=== PATIENT | female | born 1960 | race African-American/Black ===

== ENCOUNTER 2017-07-08 18:22 | Inpatient (IN) | payer OTHER ==
[~2017-07-08] VITALS: Ht 170.2 cm; Wt 128.4 kg
[~2017-07-08 18:22] MED LIST: FERR-63 PO; INS7030 SUBCUT; INSULIN; LOSA25TA3 PO; REGULAR INSULIN SQ
[2017-07-08] MEDS ORDERED: NITROGLYCERIN 50MG PREMIX 250 ML IV ONE (18:33)
[2017-07-08] MEDS ORDERED: NITROGLYCERIN 0.4MG TABLET SL SL PRN (18:45)
[2017-07-08] MEDS ORDERED: ASPIRIN 81MG TABLET PO ONE (18:45)
[2017-07-08 18:55] LABS: BG BASE EXCESS -4.2 mmol/L (-2.0-2.0); BG BILEVEL POS AIRWAY PRESSURE 18/5; BG CARBOXYHEMOGLOBIN 0.8 % (0.5-1.5); BG DEOXYHEMOGLOBIN 6.7 % (0.0-5.0); BG FRACTION INSPIRED OXYGEN 100; BG HCO3 ACT 22.7 mmol/L (22.0-26.0); BG METHEMOGLOBIN 0.3 % (0.0-1.5); BG OXYGEN SATURATION 93.2 % (92.0-98.5); BG OXYHEMOGLOBIN 92.2 % (94.0-97.0); BG PCO2 48.5 mmHg (35.0-45.0); BG PH 7.288 (7.350-7.450); BG PO2 78.9 mmHg (75.0-100.0); BG SAMPLE SITE RIGHT RADIAL; BG TOTAL HEMOGLOBIN 13.7 g/dL (12.0-18.0); BG VENT MODE MASK - BIPAP; BG VENT RATE 20 set
[2017-07-08 19:05] LABS: EOSINOPHILS % 4.4 % (0.0-5.0); HEMATOCRIT. 41.3 % (36.0-48.0); LYMPHOCYTES % 30.6 % (20.0-50.0); MEAN CORPUSCULAR HEMOGLOBIN 25.7 pg (28.0-32.0); MEAN CORPUSCULAR VOLUME 81.7 fL (81.0-99.0); MEAN PLATELET VOLUME 11.2 fl (7.4-10.4); MONOCYTES % 6.1 % (2.0-8.0); NEUTROPHILS % 57.9 % (40.0-76.0); PLATELET 254 x1000/uL (130-400); RED BLOOD CELL COUNT 5.05 mill/uL (4.2-5.4); RED CELL DISTRIBUTION WIDTH 15.1 % (11.6-14.6)
[2017-07-08 19:09] LABS: CHLORIDE 103 mEq/L (98-107)
[2017-07-08 19:10] LABS: PROTHROMBIN TIME 10.8 sec (9.4-11.6)
[2017-07-08] MEDS ORDERED: VANCOMYCIN 1 G PREMIX 200 ML IV ONE (19:30)
[2017-07-08] MEDS ORDERED: PIPERACILLIN/TAZ 3.375G PREMIX 50 ML IV ONE (19:30)
[2017-07-08] MEDS ORDERED: MAGNESIUM/ALUMINUM HYDROXIDE/SIMETHICONE 30ML UDC PO PRN (20:30)
[2017-07-08] MEDS ORDERED: ACETAMINOPHEN 325MG TABLET PO PRN (20:30)
[2017-07-08] MEDS ORDERED: NA PHOS,M-B/NA PHOS,DI-BA ENEMA 118ML PR PRN (20:30)
[2017-07-08] MEDS ORDERED: HYDROCODONE/ACETAMINOPHEN 5/325MG TABLET PO PRN (20:30)
[2017-07-08] MEDS ORDERED: ACETAMINOPHEN 650MG/20.3ML UDC GT PRN (20:30)
[2017-07-08] MEDS ORDERED: DEXTROSE 50% WATER 50ML SYRINGE IV PRN (20:30)
[2017-07-08] MEDS ORDERED: ACETAMINOPHEN 650MG SUPP PR PRN (20:30)
[2017-07-08] MEDS ORDERED: MORPHINE SULFATE 2 MG/ML CPJ (NOT FOR IM USE) IV PRN (20:30)
[2017-07-08] MEDS ORDERED: HYDROCODONE/ACETAMINOPHEN 10/325MG TABLET PO PRN (20:30)
[2017-07-08] MEDS ORDERED: DIPHENHYDRAMINE 50MG/ML VIAL IV PRN (20:30)
[2017-07-08] MEDS ORDERED: ONDANSETRON HCL 4MG/2ML VIAL IV PRN (20:30)
[2017-07-08 21:14] LABS: BG BASE EXCESS -3.8 mmol/L (-2.0-2.0); BG BILEVEL POS AIRWAY PRESSURE 18/5; BG DEOXYHEMOGLOBIN 3.8 % (0.0-5.0); BG FRACTION INSPIRED OXYGEN 100; BG HCO3 ACT 22.5 mmol/L (22.0-26.0); BG METHEMOGLOBIN 0.5 % (0.0-1.5); BG OXYGEN SATURATION 96.2 % (92.0-98.5); BG OXYHEMOGLOBIN 95.7 % (94.0-97.0); BG PCO2 45.8 mmHg (35.0-45.0); BG PH 7.309 (7.350-7.450); BG PO2 92.7 mmHg (75.0-100.0); BG SAMPLE SITE RIGHT RADIAL; BG TOTAL HEMOGLOBIN 13.1 g/dL (12.0-18.0); BG VENT MODE MASK - BIPAP; BG VENT RATE 20 set
[2017-07-08] MEDS ORDERED: FUROSEMIDE 40MG/4ML VIAL IVP ONE (22:00)
[2017-07-08] MEDS ORDERED: INSULIN LISPRO 100 UNITS/ML SUBCUT NR (22:00)
[2017-07-08 22:30] VITALS: BP 169/77
[2017-07-08 22:45] VITALS: BP 166/75
[2017-07-08 23:00] VITALS: BP 148/55
[2017-07-08] MEDS: FUROSEMIDE 40MG/4ML VIAL IV SCH (23:10)
[2017-07-08] MEDS: BLOOD SUGAR DIAGNOSTIC STRIP TEST SCH (23:10)
[2017-07-08] MEDS: INSULIN LISPRO 100 UNITS/ML SUBCUT SCH (23:19)
[2017-07-08 23:30] VITALS: BP 133/49
[2017-07-09] VITALS (47 sets, daily range): BP systolic 84–175; BP diastolic 48–94
[2017-07-09] MEDS: IPRATROPIUM/ALBUTEROL 0.5-3(2.5)MG/3ML NEB INH PRN ×2 (00:27→08:46)
[2017-07-09] MEDS ORDERED: INSULIN GLARGINE UD 100 UNITS/ML SYR SUBCUT NR ×2 (02:00→15:30)
[2017-07-09 05:47] LABS: HEMATOCRIT. 35.6 % (36.0-48.0); HEMOGLOBIN. 11.4 g/dL (12.0-16.0); MEAN CORPUSCULAR HEMOGLOBIN 26.1 pg (28.0-32.0); MEAN CORPUSCULAR VOLUME 81.6 fL (81.0-99.0); MEAN PLATELET VOLUME 11.4 fl (7.4-10.4); PLATELET 179 x1000/uL (130-400); RED BLOOD CELL COUNT 4.36 mill/uL (4.2-5.4)
[2017-07-09 05:49] LABS: CHLORIDE 108 mEq/L (98-107)
[2017-07-09 06:01] LABS: LDL CHOLESTEROL 81 mg/dL (5-100)
[2017-07-09 06:02] LABS: CREATINE KINASE 194 IU/L (26-192)
[2017-07-09 06:05] LABS: HDL CHOLESTEROL 63 mg/dL (40-59)
[2017-07-09] MEDS: BLOOD SUGAR DIAGNOSTIC STRIP TEST SCH ×4 (06:24→20:50)
[2017-07-09] MEDS: SODIUM CHLORIDE 0.9% INJ 3ML FLUSH IVF SCH ×3 (06:24→21:00)
[2017-07-09] MEDS: INSULIN LISPRO 100 UNITS/ML SUBCUT SCH ×4 (06:24→20:57)
[2017-07-09 07:57] LABS: BG BASE EXCESS -3.1 mmol/L (-2.0-2.0); BG BILEVEL POS AIRWAY PRESSURE 18/5; BG DEOXYHEMOGLOBIN 0.9 % (0.0-5.0); BG HCO3 ACT 21.6 mmol/L (22.0-26.0); BG METHEMOGLOBIN 0.3 % (0.0-1.5); BG OXYGEN SATURATION 99.1 % (92.0-98.5); BG OXYHEMOGLOBIN 98.8 % (94.0-97.0); BG PCO2 37.2 mmHg (35.0-45.0); BG PH 7.381 (7.350-7.450); BG PO2 195.8 mmHg (75.0-100.0); BG SAMPLE SITE RIGHT RADIAL; BG TOTAL HEMOGLOBIN 11.8 g/dL (12.0-18.0); BG VENT MODE MASK - BIPAP; BG VENT RATE 20 set
[2017-07-09] MEDS ORDERED: AMLODIPINE 5MG TABLET PO SCH (08:10)
[2017-07-09] MEDS: AMLODIPINE 5MG TABLET PO SCH (09:00)
[2017-07-09] MEDS: AZITHROMYCIN 500 MG in SODIUM CHLORIDE 0.9% 250 ML IV SCH (09:36)
[2017-07-09] MEDS: CEFTRIAXONE 1 G PREMIX 50 ML IV SCH (09:36)
[2017-07-09] MEDS: FUROSEMIDE 40MG/4ML VIAL IV SCH ×2 (09:39→19:31)
[2017-07-09] MEDS: FAMOTIDINE 20MG/2ML VIAL IV SCH (09:39)
[2017-07-09] MEDS: ENOXAPARIN 30MG/0.3ML SYR SUBCUT SCH ×2 (09:43→20:56)
[2017-07-09] MEDS: INSULIN GLARGINE UD 100 UNITS/ML SYR SUBCUT SCH ×2 (11:58→21:00)
[2017-07-09] MEDS ORDERED: ALBUTEROL (0.083%) 2.5MG/3ML NEB HHN SCH (12:00)
[2017-07-09] MEDS: POTASSIUM CHLORIDE 20MEQ TABLET SR PO SCH (12:15)
[2017-07-09] MEDS: IPRATROPIUM/ALBUTEROL 0.5-3(2.5)MG/3ML NEB HHN SCH ×3 (12:40→19:59)
[2017-07-09 12:50] LABS: PLATELET ESTIMATE NORMAL
[2017-07-09] MEDS ORDERED: LIDOCAINE HCL/PF 1% 2ML VIAL ONE ×2 (14:46→15:17)
[2017-07-09] MEDS: LOSARTAN POTASSIUM 25 MG TABLET PO SCH (15:52)
[2017-07-09] MEDS: FERROUS SULFATE 325MG TABLET PO SCH (15:52)
[2017-07-09 16:27] LABS: BG BASE EXCESS -0.2 mmol/L (-2.0-2.0); BG BILEVEL POS AIRWAY PRESSURE 15/5; BG CARBOXYHEMOGLOBIN 0.5 % (0.5-1.5); BG DEOXYHEMOGLOBIN 1.5 % (0.0-5.0); BG FRACTION INSPIRED OXYGEN 50; BG HCO3 ACT 23.5 mmol/L (22.0-26.0); BG METHEMOGLOBIN 0.1 % (0.0-1.5); BG OXYGEN SATURATION 98.5 % (92.0-98.5); BG OXYHEMOGLOBIN 97.9 % (94.0-97.0); BG PH 7.444 (7.350-7.450); BG PO2 119.5 mmHg (75.0-100.0); BG SAMPLE SITE RIGHT RADIAL; BG TOTAL HEMOGLOBIN 11.8 g/dL (12.0-18.0); BG VENT MODE MASK - BIPAP; BG VENT RATE 20 set
[2017-07-09] MEDS: CARVEDILOL 3.125 MG TABLET PO SCH (20:16)
[2017-07-09] MEDS ORDERED: INSULIN GLARGINE UD 100 UNITS/ML SYR SUBCUT SCH (22:00)
[2017-07-10] VITALS (47 sets, daily range): BP systolic 127–185; BP diastolic 47–113
[2017-07-10] MEDS: IPRATROPIUM/ALBUTEROL 0.5-3(2.5)MG/3ML NEB HHN SCH ×6 (00:25→19:40)
[2017-07-10] MEDS: SODIUM CHLORIDE 0.9% INJ 3ML FLUSH IVF SCH ×3 (05:17→21:55)
[2017-07-10 05:35] LABS: BASOPHILS % 0.2 % (0.0-2.0); EOSINOPHILS % 0.5 % (0.0-5.0); HEMATOCRIT. 32.1 % (36.0-48.0); HEMOGLOBIN. 10.5 g/dL (12.0-16.0); LYMPHOCYTES % 8.4 % (20.0-50.0); MEAN CORPUSCULAR HEMOGLOBIN 26.2 pg (28.0-32.0); MEAN CORPUSCULAR VOLUME 80.1 fL (81.0-99.0); MEAN PLATELET VOLUME 11.1 fl (7.4-10.4); MONOCYTES % 8.1 % (2.0-8.0); NEUTROPHILS % 82.8 % (40.0-76.0); PLATELET 146 x1000/uL (130-400); RED CELL DISTRIBUTION WIDTH 15.2 % (11.6-14.6)
[2017-07-10] MEDS: CLONIDINE 0.1MG TABLET PO PRN (05:35)
[2017-07-10] MEDS: BLOOD SUGAR DIAGNOSTIC STRIP TEST SCH ×4 (05:55→21:54)
[2017-07-10 05:56] LABS: CHLORIDE 105 mEq/L (98-107)
[2017-07-10] MEDS: INSULIN LISPRO 100 UNITS/ML SUBCUT SCH ×4 (06:01→21:52)
[2017-07-10 07:36] LABS: BG BASE EXCESS -1.1 mmol/L (-2.0-2.0); BG BILEVEL POS AIRWAY PRESSURE 15/5; BG CARBOXYHEMOGLOBIN 0.7 % (0.5-1.5); BG DEOXYHEMOGLOBIN 6.7 % (0.0-5.0); BG HCO3 ACT 22.8 mmol/L (22.0-26.0); BG METHEMOGLOBIN 0.1 % (0.0-1.5); BG OXYGEN SATURATION 93.2 % (92.0-98.5); BG OXYHEMOGLOBIN 92.5 % (94.0-97.0); BG PCO2 35.2 mmHg (35.0-45.0); BG PO2 68.4 mmHg (75.0-100.0); BG SAMPLE SITE RIGHT RADIAL; BG VENT MODE MASK - BIPAP; BG VENT RATE 18 set
[2017-07-10] MEDS: FUROSEMIDE 40MG/4ML VIAL IV SCH ×2 (07:54→17:15)
[2017-07-10] MEDS: AMLODIPINE 5MG TABLET PO SCH ×2 (08:12→21:53)
[2017-07-10] MEDS: ENOXAPARIN 30MG/0.3ML SYR SUBCUT SCH ×2 (08:12→21:54)
[2017-07-10] MEDS: FAMOTIDINE 20MG/2ML VIAL IV SCH (08:12)
[2017-07-10] MEDS: FERROUS SULFATE 325MG TABLET PO SCH (08:13)
[2017-07-10] MEDS: POTASSIUM CHLORIDE 20MEQ TABLET SR PO SCH (08:13)
[2017-07-10] MEDS: CEFTRIAXONE 1 G PREMIX 50 ML IV SCH (08:13)
[2017-07-10] MEDS: CARVEDILOL 3.125 MG TABLET PO SCH ×2 (08:13→21:53)
[2017-07-10] MEDS: LOSARTAN POTASSIUM 25 MG TABLET PO SCH (08:13)
[2017-07-10] MEDS: INSULIN GLARGINE UD 100 UNITS/ML SYR SUBCUT SCH ×2 (09:30→22:34)
[2017-07-10] MEDS: AZITHROMYCIN 500 MG in SODIUM CHLORIDE 0.9% 250 ML IV SCH (09:30)
[2017-07-10] MEDS ORDERED: ACETAMINOPHEN 325MG TABLET PO PRN (09:45)
[2017-07-10] MEDS ORDERED: LIDOCAINE HCL/PF 1% 2ML VIAL ONE (14:41)
[2017-07-10 15:24] LABS: KETONES URINE 1+ (NEGATIVE); LEUKOCYTE ESTERASE URINE NEGATIVE (NEGATIVE); NITRITE URINE NEGATIVE (NEGATIVE); OCCULT BLOOD URINE NEGATIVE (NEGATIVE); PROTEIN URINE TRACE (NEGATIVE); SPECIFIC GRAVITY URINE 1.018 (1.005-1.030); UROBILINOGEN URINE 0.2 E.U./dL (0.2-1.0)
[2017-07-10 15:32] LABS: COLOR URINE YELLOW (YELLOW)
[2017-07-10 15:33] LABS: CLARITY URINE SLIGHTLY HAZY (CLEAR)
[2017-07-10 16:18] LABS: *AMPHETAMINES SCREEN URINE NEGATIVE (NEGATIVE); *BARBITURATES SCREEN URINE NEGATIVE (NEGATIVE)
[2017-07-10 16:19] LABS: *BENZODIAZEPINES SCREEN URINE NEGATIVE (NEGATIVE); *COCAINE SCREEN URINE NEGATIVE (NEGATIVE); METHADONE URINE SCREEN NEGATIVE (NEGATIVE); OPIATES URINE SCREEN NEGATIVE (NEGATIVE); PHENCYCLIDINE URINE SCREEN NEGATIVE (NEGATIVE)
[2017-07-10 16:20] LABS: CANNABINOID URINE SCREEN NEGATIVE (NEGATIVE)
[2017-07-11] VITALS (49 sets, daily range): BP systolic 126–218; BP diastolic 55–128
[2017-07-11] MEDS: IPRATROPIUM/ALBUTEROL 0.5-3(2.5)MG/3ML NEB HHN SCH ×7 (00:27→23:48)
[2017-07-11 05:24] LABS: BASOPHILS % 0.3 % (0.0-2.0); EOSINOPHILS % 2.2 % (0.0-5.0); HEMATOCRIT. 29.3 % (36.0-48.0); HEMOGLOBIN. 9.8 g/dL (12.0-16.0); LYMPHOCYTES % 10.6 % (20.0-50.0); MEAN CORPUSCULAR HEMOGLOBIN 26.6 pg (28.0-32.0); MEAN CORPUSCULAR VOLUME 79.8 fL (81.0-99.0); MEAN PLATELET VOLUME 11.3 fl (7.4-10.4); NEUTROPHILS % 80.9 % (40.0-76.0); PLATELET 162 x1000/uL (130-400); RED BLOOD CELL COUNT 3.67 mill/uL (4.2-5.4); RED CELL DISTRIBUTION WIDTH 15.3 % (11.6-14.6)
[2017-07-11 05:45] LABS: CHLORIDE 103 mEq/L (98-107)
[2017-07-11] MEDS: BLOOD SUGAR DIAGNOSTIC STRIP TEST SCH ×4 (06:06→21:08)
[2017-07-11] MEDS: INSULIN LISPRO 100 UNITS/ML SUBCUT SCH ×4 (06:08→21:25)
[2017-07-11] MEDS: SODIUM CHLORIDE 0.9% INJ 3ML FLUSH IVF SCH ×3 (06:09→21:26)
[2017-07-11] MEDS: FUROSEMIDE 40MG/4ML VIAL IV SCH ×2 (06:09→18:12)
[2017-07-11] MEDS: FAMOTIDINE 20MG/2ML VIAL IV SCH ×2 (10:44→21:26)
[2017-07-11] MEDS: LOSARTAN POTASSIUM 25 MG TABLET PO SCH (10:45)
[2017-07-11] MEDS: ENOXAPARIN 30MG/0.3ML SYR SUBCUT SCH ×2 (10:45→21:26)
[2017-07-11] MEDS: AMLODIPINE 5MG TABLET PO SCH ×2 (10:45→21:24)
[2017-07-11] MEDS: POTASSIUM CHLORIDE 20MEQ TABLET SR PO SCH (10:45)
[2017-07-11] MEDS: FERROUS SULFATE 325MG TABLET PO SCH (10:45)
[2017-07-11] MEDS: CARVEDILOL 3.125 MG TABLET PO SCH ×2 (10:45→21:24)
[2017-07-11] MEDS: CEFTRIAXONE 1 G PREMIX 50 ML IV SCH (10:47)
[2017-07-11] MEDS: GUAIFENESIN 600MG ER TABLET PO SCH ×2 (10:47→21:23)
[2017-07-11] MEDS: AZITHROMYCIN 500 MG in SODIUM CHLORIDE 0.9% 250 ML IV SCH (10:48)
[2017-07-11] MEDS: INSULIN GLARGINE UD 100 UNITS/ML SYR SUBCUT SCH ×2 (10:49→22:28)
[2017-07-11] MEDS: CLONIDINE 0.1MG TABLET PO PRN (18:12)
[2017-07-12] VITALS (42 sets, daily range): BP systolic 109–172; BP diastolic 53–151
[2017-07-12] MEDS: IPRATROPIUM/ALBUTEROL 0.5-3(2.5)MG/3ML NEB HHN SCH ×4 (03:27→16:47)
[2017-07-12] MEDS: SODIUM CHLORIDE 0.9% INJ 3ML FLUSH IVF SCH ×2 (06:13→14:00)
[2017-07-12] MEDS: BLOOD SUGAR DIAGNOSTIC STRIP TEST SCH ×3 (06:13→16:54)
[2017-07-12] MEDS: INSULIN LISPRO 100 UNITS/ML SUBCUT SCH ×3 (06:29→17:02)
[2017-07-12] MEDS: FUROSEMIDE 40MG/4ML VIAL IV SCH ×2 (06:29→17:01)
[2017-07-12] MEDS: FAMOTIDINE 20MG/2ML VIAL IV SCH (09:14)
[2017-07-12] MEDS: GUAIFENESIN 600MG ER TABLET PO SCH (09:15)
[2017-07-12] MEDS: FERROUS SULFATE 325MG TABLET PO SCH (09:15)
[2017-07-12] MEDS: CARVEDILOL 3.125 MG TABLET PO SCH (09:15)
[2017-07-12] MEDS: AZITHROMYCIN 500 MG in SODIUM CHLORIDE 0.9% 250 ML IV SCH (09:15)
[2017-07-12] MEDS: AMLODIPINE 5MG TABLET PO SCH (09:15)
[2017-07-12] MEDS: POTASSIUM CHLORIDE 20MEQ TABLET SR PO SCH (09:15)
[2017-07-12] MEDS: DOCUSATE SODIUM 100MG CAPSULE PO PRN ×2 (09:15→17:02)
[2017-07-12] MEDS: LOSARTAN POTASSIUM 25 MG TABLET PO SCH (09:16)
[2017-07-12] MEDS: CEFTRIAXONE 1 G PREMIX 50 ML IV SCH (09:16)
[2017-07-12] MEDS: ENOXAPARIN 30MG/0.3ML SYR SUBCUT SCH (09:16)
[2017-07-12] MEDS: INSULIN GLARGINE UD 100 UNITS/ML SYR SUBCUT SCH (12:52)
[2017-07-12 14:11] LABS: BG BASE EXCESS 2.9 mmol/L (-2.0-2.0); BG CARBOXYHEMOGLOBIN 0.9 % (0.5-1.5); BG DEOXYHEMOGLOBIN 4.8 % (0.0-5.0); BG HCO3 ACT 26.5 mmol/L (22.0-26.0); BG METHEMOGLOBIN 0.2 % (0.0-1.5); BG OXYGEN SATURATION 95.1 % (92.0-98.5); BG OXYHEMOGLOBIN 94.1 % (94.0-97.0); BG PCO2 37.4 mmHg (35.0-45.0); BG PH 7.469 (7.350-7.450); BG PO2 73.7 mmHg (75.0-100.0); BG SAMPLE SITE RIGHT RADIAL; BG TOTAL HEMOGLOBIN 13.2 g/dL (12.0-18.0); BG VENT MODE VAPOTHERM
[2017-07-12 15:31] LABS: BASOPHILS % 0.8 % (0.0-2.0); HEMATOCRIT. 32.5 % (36.0-48.0); HEMOGLOBIN. 10.8 g/dL (12.0-16.0); LYMPHOCYTES % 20.7 % (20.0-50.0); MEAN CORPUSCULAR HEMOGLOBIN 26.5 pg (28.0-32.0); MEAN CORPUSCULAR VOLUME 79.8 fL (81.0-99.0); MEAN PLATELET VOLUME 10.2 fl (7.4-10.4); MONOCYTES % 7.3 % (2.0-8.0); NEUTROPHILS % 61.2 % (40.0-76.0); PLATELET 208 x1000/uL (130-400); RED BLOOD CELL COUNT 4.07 mill/uL (4.2-5.4); RED CELL DISTRIBUTION WIDTH 15.1 % (11.6-14.6)
[2017-07-12 15:44] LABS: CHLORIDE 103 mEq/L (98-107)
[2017-07-12 18:17] LABS: CHLORIDE 104 mEq/L (98-107)
[2017-07-13] MEDS ORDERED: AZITHROMYCIN 500 MG TABLET PO SCH (09:00)
== END 2017-07-12 20:41 | disposition short-term general hospital (02) | DRG 291 ==
LOC: ER 18:33 → MICUSO 20:15 → EDBEDREQ 20:19 → EDBEDREQTM 20:19 → EDBEDREQSVC 20:19 → ENRESERV 21:23
PROVIDERS: ADMIT Family Medicine; ATTEND Family Medicine
PROC: 5A09457 Assistance with Respiratory Ventilation, 24-96 Consecutive Hours, Continuous Positive Airway Pressure (ICD-10-PCS; principal; 2017-07-08)
DX: I11.0 Hypertensive heart disease with heart failure (principal); J18.9 Pneumonia, unspecified organism; J96.02 Acute respiratory failure with hypercapnia; E87.2 Acidosis; J44.0 Chronic obstructive pulmonary disease with (acute) lower respiratory infection; Z68.41 Body mass index [BMI] 40.0-44.9, adult; E11.65 Type 2 diabetes mellitus with hyperglycemia; E66.01 Morbid (severe) obesity due to excess calories; I50.33 Acute on chronic diastolic (congestive) heart failure; D64.9 Anemia, unspecified; E04.9 Nontoxic goiter, unspecified; E78.5 Hyperlipidemia, unspecified; G47.33 Obstructive sleep apnea (adult) (pediatric); E80.6 Other disorders of bilirubin metabolism; Z80.9 Family history of malignant neoplasm, unspecified; Z82.49 Family history of ischemic heart disease and other diseases of the circulatory system; Z88.8 Allergy status to other drugs, medicaments and biological substances; Z88.5 Allergy status to narcotic agent; Z79.4 Long term (current) use of insulin; Z79.899 Other long term (current) drug therapy; Z72.89 Other problems related to lifestyle; Z87.891 Personal history of nicotine dependence
CPT/HCPCS: 36415; 36600; 71045; 80048; 80053; 80061; 80305; 81003; 82375; 82550; 82805; 82962; 83036; 83735; 83880; 84443; 84484; 85025; 85379; 85610; 87040; 87804; 92950; 93005; 93306; 93970; 94640; 94660; J0456; J0696; J1650; J1815; J1940; J2543; J3370; J3490; J7050; J7620

== ENCOUNTER 2017-12-27 13:26 | Inpatient (IN) | payer OTHER ==
[~2017-12-27] VITALS: Ht 162.6 cm; Wt 119.4 kg
[2017-12-27] MEDS ORDERED: IPRATROPIUM BROMIDE (0.02%) 0.5MG/2.5ML NEB HHN STA (13:28)
[2017-12-27] MEDS ORDERED: ALBUTEROL (0.083%) 2.5MG/3ML NEB HHN STA (13:28)
[2017-12-27] MEDS ORDERED: FUROSEMIDE 40MG/4ML VIAL IVP ONE (13:30)
[2017-12-27] MEDS ORDERED: NITROGLYCERIN 50MG PREMIX 250 ML IV ONE ×2 (13:30→14:12)
[2017-12-27] MEDS ORDERED: IPRATROPIUM/ALBUTEROL 0.5-3(2.5)MG/3ML NEB ONE (14:07)
[2017-12-27] MEDS ORDERED: IPRATROPIUM BROMIDE (0.02%) 0.5MG/2.5ML NEB ONE (14:08)
[2017-12-27 14:10] LABS: BASOPHILS % 0.8 % (0.0-2.0); EOSINOPHILS % 1.4 % (0.0-5.0); HEMOGLOBIN. 12.8 g/dL (12.0-16.0); LYMPHOCYTES % 19.2 % (20.0-50.0); MEAN CORPUSCULAR HEMOGLOBIN 27.2 pg (28.0-32.0); MEAN CORPUSCULAR VOLUME 82.9 fL (81.0-99.0); MEAN PLATELET VOLUME 10.9 fl (7.4-10.4); MONOCYTES % 5.3 % (2.0-8.0); NEUTROPHILS % 73.3 % (40.0-76.0); PLATELET 214 x1000/uL (130-400); RED CELL DISTRIBUTION WIDTH 14.9 % (11.6-14.6)
[2017-12-27 14:14] LABS: CHLORIDE 105 mEq/L (98-107)
[2017-12-27] MEDS ORDERED: NITROGLYCERIN OINT 1GM/INCH UDPKT TD ONE (14:15)
[2017-12-27] MEDS ORDERED: LEVOFLOXACIN 750MG PREMIX 150 ML IV ONE (14:15)
[2017-12-27 14:20] LABS: PARTIAL THROMBOPLASTIN TIME 25.4 sec (23.4-31.0); PROTHROMBIN TIME 10.3 sec (9.1-11.1)
[2017-12-27 14:45] LABS: BG BASE EXCESS -6.9 mmol/L (-2.0-2.0); BG BILEVEL POS AIRWAY PRESSURE 15/5; BG CARBOXYHEMOGLOBIN 0.1 % (0.5-1.5); BG DEOXYHEMOGLOBIN 1.3 % (0.0-5.0); BG METHEMOGLOBIN 0.3 % (0.0-1.5); BG OXYGEN SATURATION 98.7 % (92.0-98.5); BG OXYHEMOGLOBIN 98.3 % (94.0-97.0); BG PCO2 29.6 mmHg (35.0-45.0); BG PH 7.376 (7.350-7.450); BG PO2 158.4 mmHg (75.0-100.0); BG SAMPLE SITE RIGHT RADIAL; BG TOTAL HEMOGLOBIN 12.9 g/dL (12.0-18.0); BG VENT MODE MASK - BIPAP; BG VENT RATE 15 set
[2017-12-27 15:49] LABS: CLARITY URINE CLEAR (CLEAR); COLOR URINE YELLOW (YELLOW); KETONES URINE TRACE (NEGATIVE); LEUKOCYTE ESTERASE URINE NEGATIVE (NEGATIVE); NITRITE URINE NEGATIVE (NEGATIVE); OCCULT BLOOD URINE NEGATIVE (NEGATIVE); PROTEIN URINE 3+ (NEGATIVE); SPECIFIC GRAVITY URINE 1.041 (1.005-1.030); UROBILINOGEN URINE 0.2 E.U./dL (0.2-1.0)
[2017-12-27 16:20] VITALS: BP 147/88
[2017-12-27 16:31] LABS: *AMPHETAMINES SCREEN URINE NEGATIVE (NEGATIVE); *BARBITURATES SCREEN URINE NEGATIVE (NEGATIVE); *BENZODIAZEPINES SCREEN URINE NEGATIVE (NEGATIVE); *COCAINE SCREEN URINE NEGATIVE (NEGATIVE)
[2017-12-27 16:32] LABS: CANNABINOID URINE SCREEN NEGATIVE (NEGATIVE); METHADONE URINE SCREEN NEGATIVE (NEGATIVE); OPIATES URINE SCREEN NEGATIVE (NEGATIVE); PHENCYCLIDINE URINE SCREEN NEGATIVE (NEGATIVE)
[2017-12-27] MEDS ORDERED: ONDANSETRON HCL 4MG/2ML INJ IV PRN (16:45)
[2017-12-27] MEDS ORDERED: CLONIDINE 0.1MG TABLET PO PRN (16:45)
[2017-12-27] MEDS ORDERED: ACETAMINOPHEN 325MG TABLET PO PRN (16:45)
[2017-12-27] MEDS ORDERED: IPRATROPIUM/ALBUTEROL 0.5-3(2.5)MG/3ML NEB INH PRN (16:45)
[2017-12-27] MEDS: FUROSEMIDE 40MG/4ML VIAL IVP SCH (17:20)
[2017-12-27] MEDS: LOSARTAN POTASSIUM 50 MG TABLET PO SCH (17:21)
[2017-12-27] MEDS: POTASSIUM CHLORIDE 20MEQ TABLET SR PO SCH (17:21)
[2017-12-27] MEDS: FERROUS SULFATE 325MG TABLET PO SCH (17:22)
[2017-12-27 17:38] VITALS: BP 141/66
[2017-12-27] MEDS ORDERED: DEXTROSE 50% WATER 50ML SYRINGE IV PRN ×2 (17:45→18:00)
[2017-12-27 20:00] VITALS: BP 146/73
[2017-12-27] MEDS ORDERED: INSULIN LISPRO 100 UNITS/ML SUBCUT SCH (21:00)
[2017-12-27] MEDS: BLOOD SUGAR DIAGNOSTIC STRIP TEST SCH (21:00)
[2017-12-27] MEDS: AMLODIPINE 5MG TABLET PO SCH (21:15)
[2017-12-27] MEDS: INSULIN LISPRO 100 UNITS/ML SUBCUT SCH (21:16)
[2017-12-27] MEDS: IPRATROPIUM/ALBUTEROL 0.5-3(2.5)MG/3ML NEB HHN SCH (21:27)
[2017-12-27 22:00] VITALS: BP 124/51
[2017-12-27] MEDS: SODIUM CHLORIDE 0.9% INJ 3ML FLUSH IVF SCH (22:00)
[2017-12-28] VITALS (13 sets, daily range): BP systolic 113–179; BP diastolic 47–89
[2017-12-28] MEDS: IPRATROPIUM/ALBUTEROL 0.5-3(2.5)MG/3ML NEB HHN SCH ×4 (03:38→21:54)
[2017-12-28] MEDS: SODIUM CHLORIDE 0.9% INJ 3ML FLUSH IVF SCH ×3 (06:00→22:11)
[2017-12-28] MEDS: BLOOD SUGAR DIAGNOSTIC STRIP TEST SCH ×4 (06:25→20:11)
[2017-12-28] MEDS: LOSARTAN POTASSIUM 50 MG TABLET PO SCH ×2 (06:25→18:28)
[2017-12-28] MEDS: INSULIN LISPRO 100 UNITS/ML SUBCUT SCH ×4 (06:26→20:27)
[2017-12-28 06:55] LABS: CHLORIDE 105 mEq/L (98-107)
[2017-12-28 06:59] LABS: BASOPHILS % 0.4 % (0.0-2.0); EOSINOPHILS % 1.1 % (0.0-5.0); HEMATOCRIT. 32.7 % (36.0-48.0); HEMOGLOBIN. 10.8 g/dL (12.0-16.0); LYMPHOCYTES % 15.1 % (20.0-50.0); MEAN CORPUSCULAR HEMOGLOBIN 27.4 pg (28.0-32.0); MEAN CORPUSCULAR VOLUME 83.2 fL (81.0-99.0); MEAN PLATELET VOLUME 10.8 fl (7.4-10.4); NEUTROPHILS % 76.4 % (40.0-76.0); PLATELET 153 x1000/uL (130-400); RED BLOOD CELL COUNT 3.94 mill/uL (4.2-5.4); RED CELL DISTRIBUTION WIDTH 14.6 % (11.6-14.6)
[2017-12-28 07:07] LABS: LDL CHOLESTEROL 82 mg/dL (5-100)
[2017-12-28 07:09] LABS: HDL CHOLESTEROL 70 mg/dL (40-59)
[2017-12-28] MEDS: POTASSIUM CHLORIDE 20MEQ TABLET SR PO SCH (08:13)
[2017-12-28] MEDS: FUROSEMIDE 40MG/4ML VIAL IVP SCH ×2 (08:14→17:22)
[2017-12-28] MEDS: AMLODIPINE 5MG TABLET PO SCH ×2 (08:14→20:28)
[2017-12-28] MEDS: FERROUS SULFATE 325MG TABLET PO SCH (08:14)
[2017-12-28] MEDS: LEVOFLOXACIN 750MG PREMIX 150 ML IV SCH (08:35)
[2017-12-28] MEDS ORDERED: MAGNESIUM SULFATE 2 GM in DEXTROSE 5% WATER 50 ML IV NR (10:30)
[2017-12-28] MEDS: INSULIN GLARGINE UD 100 UNITS/ML SYR SUBCUT SCH (13:39)
[2017-12-29] VITALS (15 sets, daily range): BP systolic 137–169; BP diastolic 70–94
[2017-12-29] MEDS: IPRATROPIUM/ALBUTEROL 0.5-3(2.5)MG/3ML NEB HHN SCH ×2 (01:33→09:00)
[2017-12-29] MEDS: BLOOD SUGAR DIAGNOSTIC STRIP TEST SCH ×2 (06:38→11:50)
[2017-12-29] MEDS: LOSARTAN POTASSIUM 50 MG TABLET PO SCH (06:40)
[2017-12-29] MEDS: SODIUM CHLORIDE 0.9% INJ 3ML FLUSH IVF SCH (06:41)
[2017-12-29 07:34] LABS: BASOPHILS % 0.8 % (0.0-2.0); EOSINOPHILS % 4.5 % (0.0-5.0); HEMATOCRIT. 35.6 % (36.0-48.0); HEMOGLOBIN. 11.9 g/dL (12.0-16.0); LYMPHOCYTES % 23.1 % (20.0-50.0); MEAN CORPUSCULAR HEMOGLOBIN 27.8 pg (28.0-32.0); MEAN CORPUSCULAR VOLUME 83.3 fL (81.0-99.0); MONOCYTES % 9.2 % (2.0-8.0); NEUTROPHILS % 62.4 % (40.0-76.0); PLATELET 169 x1000/uL (130-400); RED BLOOD CELL COUNT 4.28 mill/uL (4.2-5.4); RED CELL DISTRIBUTION WIDTH 14.2 % (11.6-14.6)
[2017-12-29] MEDS: INSULIN LISPRO 100 UNITS/ML SUBCUT SCH ×2 (07:49→12:42)
[2017-12-29] MEDS: POTASSIUM CHLORIDE 20MEQ TABLET SR PO SCH (08:24)
[2017-12-29] MEDS: FUROSEMIDE 40MG/4ML VIAL IVP SCH (08:24)
[2017-12-29] MEDS: FERROUS SULFATE 325MG TABLET PO SCH (08:25)
[2017-12-29] MEDS: AMLODIPINE 5MG TABLET PO SCH (08:26)
[2017-12-29 08:31] LABS: CHLORIDE 104 mEq/L (98-107)
[2017-12-29] MEDS: LEVOFLOXACIN 750MG PREMIX 150 ML IV SCH (08:33)
[2017-12-29] MEDS: INSULIN GLARGINE UD 100 UNITS/ML SYR SUBCUT SCH (11:05)
[2017-12-29] MEDS ORDERED: HYDRALAZINE HCL 25MG TABLET PO SCH (14:00)
[2017-12-29] MEDS ORDERED: LANTUSUD SUBCUT (14:28)
[2017-12-29] MEDS ORDERED: AMLO5TAB88 PO (14:28)
[2017-12-29] MEDS ORDERED: POTA20TA82 PO (14:28)
[2017-12-29] MEDS ORDERED: FURO10VI3 PO (14:28)
[2017-12-29] MEDS ORDERED: HYDR-4134 PO (14:28)
[2017-12-29] MEDS ORDERED: LOSA50TA3 PO (14:28)
== END 2017-12-29 15:34 | disposition home or self-care (01) | DRG 291 ==
LOC: ER 13:26 → 3WST 14:35 → EDBEDREQSVC 14:41 → EDBEDREQ 14:41 → ENRESERV 14:52 → CANRESERV 14:52 → ENRESERV 14:55
PROVIDERS: ADMIT Family Medicine Adult Medicine; ATTEND Family Medicine Adult Medicine
PROC: 5A09357 Assistance with Respiratory Ventilation, Less than 24 Consecutive Hours, Continuous Positive Airway Pressure (ICD-10-PCS; principal; 2017-12-27)
DX: I11.0 Hypertensive heart disease with heart failure (principal); J18.9 Pneumonia, unspecified organism; J96.01 Acute respiratory failure with hypoxia; I16.9 Hypertensive crisis, unspecified; E87.6 Hypokalemia; I50.43 Acute on chronic combined systolic (congestive) and diastolic (congestive) heart failure; G47.33 Obstructive sleep apnea (adult) (pediatric); E11.65 Type 2 diabetes mellitus with hyperglycemia; I27.20 Pulmonary hypertension, unspecified; Z60.2 Problems related to living alone; R74.0 Nonspecific elevation of levels of transaminase and lactic acid dehydrogenase [LDH]; E04.9 Nontoxic goiter, unspecified; Z79.4 Long term (current) use of insulin; Z80.9 Family history of malignant neoplasm, unspecified; Z82.49 Family history of ischemic heart disease and other diseases of the circulatory system; Z91.19 Patient's noncompliance with other medical treatment and regimen; Z98.51 Tubal ligation status; Z79.899 Other long term (current) drug therapy; Z80.3 Family history of malignant neoplasm of breast; Z80.1 Family history of malignant neoplasm of trachea, bronchus and lung; Z80.41 Family history of malignant neoplasm of ovary; Z88.6 Allergy status to analgesic agent; Z88.8 Allergy status to other drugs, medicaments and biological substances
CPT/HCPCS: 36415; 36600; 71045; 80048; 80061; 80305; 82375; 82805; 82962; 83036; 83605; 83735; 83880; 84145; 84443; 84484; 87804; 93005; 93306; 94640; 94644; 94660; 96365; 96367; 96375; 99291; J1815; J1940; J1956; J3475; J3490; J7050; J7060; J7620